=== PATIENT | male | born 1995 | race Caucasian/White ===

== ENCOUNTER 2016-06-06 18:09 | Inpatient (IN) | payer OTHER ==
[~2016-06-06] VITALS: Ht 188 cm; Wt 80.7 kg
[2016-06-07] MEDS ORDERED: ACETAMINOPHEN 325 MG TABLET PO PRN (00:15)
[2016-06-07] MEDS ORDERED: ONDANSETRON ODT 4 MG TAB.RAPDIS SL PRN (00:15)
[2016-06-07] MEDS ORDERED: MAG HYDROX/AL HYDROX/SIMETH 30 ML LIQUID UDC PO PRN (00:15)
[2016-06-07] MEDS ORDERED: DIAZEPAM 10 MG TABLET PO PRN ×2 (00:15)
[2016-06-07] MEDS ORDERED: CLONIDINE HCL 0.1 MG TABLET PO PRN (00:15)
[2016-06-07] MEDS ORDERED: IBUPROFEN 400 MG TABLET PO PRN (00:15)
[2016-06-07] MEDS ORDERED: DICYCLOMINE HCL 20 MG TABLET PO PRN (00:15)
[2016-06-07] MEDS ORDERED: MAGNESIUM HYDROXIDE 30 ML LIQUID UDC PO PRN (00:15)
[2016-06-07] MEDS ORDERED: LOPERAMIDE HCL 2 MG CAPSULE PO PRN ×2 (00:15)
[2016-06-07] MEDS ORDERED: LORAZEPAM 2 MG/1 ML VIAL IM PRN (00:15)
[2016-06-07] MEDS ORDERED: DIAZEPAM 5 MG TABLET PO PRN (00:15)
[2016-06-07] MEDS ORDERED: BUPRENORPHINE HCL 2 MG TAB.SUBL SL PRN ×2 (00:30→10:00)
--- NOTE | 2016-06-07 01:00 | NUR ---
ADMISSION NOTE Pt arrived ambulatory to the [facility] 3rd floor (accompanied by [facility] staff) at approximately 0004. Pt is a 20 y/o male ( born on 1995) being admitted for Xanax, Ativan, and Heroin dependence and use. Pt has NKA but reported a PMH of HTN, anxiety, bladder surgery x 2, appendectomy, and seizure r/t benzodiazepine w/d. Pt is unmarried and without children. Pt reported " I graduated high school, but I'm not working right now." Pt is currently rooming with friends and sharing hotel rooms. Pt denies having any financial hardship or trouble accessing resources and necessities. Pt reported not having a primary care physician or psych doctor at this time. Pt did not arrive with any medications or report taking any. Pt was then asked about his substance use history including; what substance (s) he uses, the frequency, dose, route, last use, and last amount used." Pt responded " I've been using Heroin, Xanax, and Ativan for 6 years. I use needles for Heroin and the pills I just swallow. I take up to 3 grams of Heroin a day. I take 8-12 mg of Xanax a day, and when I can't get Xanax I take about 8 mg of Ativan. The last time I had Xanax was two days ago ( est. 06/04/16) and I took 2 and a half pills, so about 5 mg. It's been about a week since I've had Ativan (est. 05/31/16). The last time I shot up Heroin was around 3:30 AM (06/06/16) and it was 0.5 gram." Pt was then asked about his treatment history. Pt stated " I was here([facility]) like 6 months ago. 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 I can't really remember the names and I was never at any of them for a long time." Upon assessment pt is a/o x 4 with no changes in LOC. Pt's skin is dry and intact, however pt has acne on his face, chest and the back of his shoulders. No discharge, redness, swelling, or bleeding noted. Pt's breathing is even and unlabored. No SOB noted or reported. Lung auscultations clear in all lobes. PERRLA noted. Hand instant potato processor strong bilaterally. Skin turgor indicates adequate hydration. Bowel sounds hypoactive in all four quadrants. Abdomen soft and non distended. Pt stated " I haven't gone to the bathroom in a few days, but I don't want to take anything because once I start withdrawing I know I'll be able to go to the bathroom." Flatulence is present. Pt encouraged to notify staff of any changes in condition or of any concerns and also to increase fluid intake. Pt verbalized an understanding. Vital Signs: BP: 135/79 P:75 T: 97.6 R: 20 Pain: 0/10 ( Pt reported his legs were starting to ache, but declined any PRNS stating " Its really not that bad. I'm going to lay down and I'm sure It'll be better in the morning; if not I'll take something then.") Oxygen Saturation: 100% COW: 7 CIWA: 2. All safety measures in place; side rails up x 2, bed locked and in low position, and call light within reach. UA to be collected and sent to the lab for testing. Will continue to monitor.
--- NOTE | 2016-06-07 04:00 | NUR ---
COW, CIWA, AND VITALS REFUSED Pt refused to be assessed and have vitals taken at this time. Pt stated " I'm sleeping right now. I'll do it in the morning." Pt was encouraged x 3 with risks and benefits explained but the pt still declined. All safety measures in place. Will continue to monitor. Addendum: 06/07/16 at 0522 by ANOOP RAMIREZ LVN Amended: Links added.
--- NOTE | 2016-06-07 07:09 | NUR ---
END OF SHIFT NOTE Pt is a 20 y/o male admitted for Xanax, Ativan and Heroin dependence and use. Pt has NKA but reported a PMH of HTN, anxiety, bladder surgery x 2, appendectomy, and seizure r/t benzodiazepine w/d. Pt is not placed on a taper at this time, but has PRN medications available for any discomfort. Pt didn't receive any PRNS during the shift. Pt still has not provided a UA. Last COW: 7 and CIWA: 2 at the time of admission. Pt refused to have blood drawn for labs at 0100. Pt slept for a total of 5 hours on rap artist. All safety measures in place; side rails up x 2, bed locked and in low position, and call light within reach. Endorsed to the oncoming nurse.
[2016-06-07 08:00] VITALS: BP 120/60
[2016-06-07] MEDS: MULTIVITAMINS,THERAPEUTIC TABLET PO SCH (09:00)
--- NOTE | 2016-06-07 10:40 | NUR ---
START OF SHIFT: RECEIVED PT WITH EYES CLOSED . EASILY AROUSED AND STATING HE WANTS TO BE LEFT ALONE. 0900 MULTIVITAMIN HELD. 0800 COWS AND CIWA DEFERRED. SAFETY MEASURES IN PLACE. CALL JOLLY IN REACH. WILL CONTINUE TO MONITOR
[2016-06-07 12:00] VITALS: BP 138/73
[2016-06-07] MEDS: DIAZEPAM 10 MG TABLET PO SCH ×3 (13:29→21:51)
[2016-06-07] MEDS: BUPRENORPHINE HCL 2 MG TAB.SUBL SL SCH ×3 (13:30→21:52)
[2016-06-07 15:13] LABS: *AMPHETAMINE, URINE NEGATIVE (NEGATIVE); *BARBITURATE, URINE POSITIVE (NEGATIVE); *CANNABINOID, URINE NEGATIVE (NEGATIVE); *COCCAINE, URINE NEGATIVE (NEGATIVE); *OPIATE, URINE POSITIVE (NEGATIVE); *PHENCYCLIDINE SCREEN,URINE NEGATIVE (NEGATIVE)
[2016-06-07 16:00] VITALS: BP 128/74
--- NOTE | 2016-06-07 18:26 | NUR ---
END OF SHIFT: PT SLEPT IN THIS AM AND AWOKE C/O LEG CRAMPS,RESTLESSNESS,STOMACH CRAMPS AND CHILLS. COWS 14. INDUCTION DOSE OF SUBUTEX 4MG SL GIVEN AND EFFECTIVE. ORDERED 4 D VALIUM 4D SUBUTEX TAPER. PT INTERACTED WITH PEERS TODAY. PT IS COMPLIANT WITH INCREASED FLUIDS. LAST CIWA 4. WILL CONTINUE TO OFFER SUPPORT AND PASS SHIFT REPORT TO ONCOMING NIGHT NURSE.
--- NOTE | 2016-06-07 19:35 | NUR ---
START OF SHIFT NOTE Pt is a 20 y/o male admitted for Xanax, Ativan and Heroin dependence and use. Pt has NKA but reported a PMH of HTN, anxiety, bladder surgery x 2, appendectomy, and seizure r/t benzodiazepine w/d. Pt was placed on a 4 day Valium taper and 4 day Subutex taper (day 1) and is tolerating medication well, with no s/e or a/r reported. Pt didn't receive any PRNS during the day shift. Last COW: 4 and CIWA: 1 (1600). Pt is calm, cooperative, and compliant with plan of care. Pt denies any pain/discomfort at this time. Pt was encouraged to notify staff of any changes in condition or of any concerns. Pt verbalized an understanding. All safety measures in place; side rails up x 2, bed locked and in low position, and call light within reach. Will continue to monitor.
[2016-06-07 20:00] VITALS: BP 127/89
[2016-06-07] MEDS: GABAPENTIN 300 MG CAPSULE PO SCH (21:51)
[2016-06-08] VITALS: BP 128/88
--- NOTE | 2016-06-08 04:00 | NUR ---
CIWA, COW, AND VITALS REFUSED Pt refused to be assessed and have vitals taken at this time. Pt was encouraged x 3 with risks and benefits explained, but the pt still declined. All safety measures in place. Will continue to monitor. Addendum: 06/08/16 at 0537 by ANOOP RAMIREZ LVN Amended: Links added.
--- NOTE | 2016-06-08 07:25 | NUR ---
END OF SHIFT NOTE Pt is a 20 y/o male admitted for Xanax, Ativan and Heroin dependence and use. Pt has NKA but reported a PMH of HTN, anxiety, bladder surgery x 2, appendectomy, and seizure r/t benzodiazepine w/d. Pt is on a 4 day Valium and 4 day Subutex taper (day 2) and is tolerating medication well with no s/e or a/r reported or noted. Pt didn't receive any PRNS during the shift.Last COW: 3 and CIWA: 3(0000). Pt slept for a total of 5 hours. All safety measures in place; side rails up x 2, bed locked and in low position, and call light within reach. Endorsed to the oncoming nurse.
--- NOTE | 2016-06-08 07:28 | NUR ---
Start Of Shift Pt is a 20 year old male admitted on 06/06/16 for Xanax, Ativan and Heroin dependence/withdrawal. Pt is full code regular diet on fall and seizure precautions denies any food or drug allergies. Reported PMH of HTN, anxiety, bladder surgery x 2, appendectomy, and seizure r/t benzodiazepine w/d. Pt is placed on a 4 day Valium and a 4 day Subutex taper currently on day 2 tolerating well. Pt's last CIWA was a 3 and COWS was a 3 taken at 0000. Pt didn't receive any PRN's during the night clerk. Pt slept a total of 5 hours last night. All safety measures in place; side rails up x 2, bed locked and in low position, and call light within reach, will continue to monitor and provide care.
[2016-06-08 08:00] VITALS: BP 107/66
[2016-06-08] MEDS ORDERED: TUBERCULIN,PURIF.PROT.DERIV. 5 TU/0.1 ML TEST ID ONE (09:00)
[2016-06-08] MEDS ORDERED: BUPRENORPHINE HCL 2 MG TAB.SUBL SL SCH (09:00)
[2016-06-08] MEDS: MULTIVITAMINS,THERAPEUTIC TABLET PO SCH (09:31)
[2016-06-08] MEDS: DIAZEPAM 5 MG TABLET PO SCH ×4 (09:31→21:38)
[2016-06-08] MEDS: GABAPENTIN 300 MG CAPSULE PO SCH ×3 (09:31→21:38)
[2016-06-08 12:00] VITALS: BP 115/69
[2016-06-08] MEDS: BUPRENORPHINE HCL 2 MG TAB.SUBL SL SCH ×2 (15:36→21:00)
[2016-06-08 16:00] VITALS: BP 109/64
--- NOTE | 2016-06-08 19:12 | NUR ---
End Of Shift Pt is a 20 year old male admitted on 06/06/16 for Xanax, Ativan and Heroin dependence/withdrawal. Pt is full code regular diet on fall and seizure precautions denies any food or drug allergies. Reported PMH of HTN, anxiety, bladder surgery x 2, appendectomy, and seizure r/t benzodiazepine w/d. Pt is placed on a 4 day Valium and a 4 day Subutex taper currently on day 2 tolerating well. Pts last CIWA was a 3 and COWS was a 3 taken at 1600. Pt didn't request nor receive any PRNS during my shift. Pt participated in some activities and groups. Pt received a PPD on his left arm. Pt stated that the medications are working well at controlling the withdrawal symptoms, evidenced by low assessment scores during the day ranging from 5-3. Pt ate all of his meals. Pt was encouraged to participate in groups and activities.Pt remains compliant with the treatment plan. Pts vital signs within normal limits, A/Ox4, denies chest pain. Respirations even unlabored, lungs clear upon auscultation abdomen soft and non- distended. Pt denies nausea, vomiting and diarrhea. Pt total fluid intake was 2150ml with 3 voids and no stool. Safety measures in place, call light within reach. All pertinent information discussed with shift superintendent, endorsement given to shift superintendent nurse.
--- NOTE | 2016-06-08 19:45 | NUR ---
START OF SHIFT NOTE Pt is a 20 y/o male admitted for Xanax, Ativan and Heroin dependence and use. Pt has NKA but reported a PMH of HTN, anxiety, bladder surgery x 2, appendectomy, and seizure r/t benzodiazepine w/d. Pt was placed on a 4 day Valium taper and 4 day Subutex taper (day 2) and is tolerating medication well, with no s/e or a/r reported. Pt didn't receive any PRNS during the day shift. Last COW: 3 and CIWA: 3 (1600). Pt is calm, cooperative, and compliant with plan of care. Pt denies any pain/discomfort at this time. Pt was encouraged to notify staff of any changes in condition or of any concerns. Pt verbalized an understanding. All safety measures in place; side rails up x 2, bed locked and in low position, and call light within reach. Will continue to monitor.
[2016-06-08 20:00] VITALS: BP 106/89
[2016-06-09] VITALS: BP 143/80
--- NOTE | 2016-06-09 04:00 | NUR ---
COW, CIWA, AND VITALS REFUSED Pt refused to be assessed and have vitals taken at this time. Pt was encouraged x 3 with risks and benefits explained, but the pt still declined. All safety measures in place. Will continue to monitor. Addendum: 06/09/16 at 0641 by ANOOP RAMIREZ LVN Amended: Links added.
--- NOTE | 2016-06-09 07:30 | NUR ---
START OF SHIFT NOTE Received report from night nurse, 20 year old male admitted for BENZO/Heroin dependence. NKA Full code, Regular diet. Pt reported a PMH of HTN, anxiety, bladder surgery x 2, appendectomy, and seizure r/t benzodiazepine w/d. Pt was placed on a 4 day Valium taper and 4 day Subutex taper and is tolerating medication well, with no s/e or a/r reported. Pt did not receive any PRN's Pt also refused his Scheduled Subutex. Currently pt is sleeping in his room, responsive to verbal and tactile stimuli, no s/s of distress noted. Safety measures in place, call light within reach. Will continue to monitor.
--- NOTE | 2016-06-09 07:32 | NUR ---
END OF SHIFT NOTE Pt is a 20 y/o male admitted for Xanax, Ativan and Heroin dependence and use. Pt has NKA but reported a PMH of HTN, anxiety, bladder surgery x 2, appendectomy, and seizure r/t benzodiazepine w/d. Pt is on a 4 day Valium and 4 day Subutex taper (day 3) and is tolerating medication well with no s/e or a/r reported or noted. Pt didn't receive any PRNS during the shift. Pt refused his 2100 dose of Subutex. Pt stated " I haven't gone to the bathroom, and if I keep taking the Subutex I'm not going to go." Pt was offered something to help aide in constipation several times, but the pt declined. Pt's abdomen is soft and barely distended. Bowel sounds present in all four quadrants. Pt was encouraged to increase fluids and ambulation to help promote elimination. Pt verbalized an understanding. Last COW: 2 and CIWA: 0(0000). Pt slept for a total of 5 hours. All safety measures in place; side rails up x 2, bed locked and in low position, and call light within reach. Endorsed to the oncoming nurse.
[2016-06-09 08:00] VITALS: BP 108/70
[2016-06-09] MEDS: BUPRENORPHINE HCL 2 MG TAB.SUBL SL SCH ×3 (09:00→21:00)
[2016-06-09] MEDS: GABAPENTIN 300 MG CAPSULE PO SCH ×3 (09:54→20:12)
[2016-06-09] MEDS: DIAZEPAM 5 MG TABLET PO SCH ×3 (09:54→20:12)
[2016-06-09] MEDS: MULTIVITAMINS,THERAPEUTIC TABLET PO SCH (09:54)
--- NOTE | 2016-06-09 09:56 | NUR ---
REFUSED MED Pt refused his scheduled Subutex stated that I am feeling fine ELISEO noted 1. aware. Will cont to monitor.
[2016-06-09 12:00] VITALS: BP 128/62
[2016-06-09 16:00] VITALS: BP 142/74
--- NOTE | 2016-06-09 19:35 | NUR ---
End of Shift 20 year old male admitted for BENZO/Heroin dependence. NKA Full code, Regular diet. Pt reported a PMH of HTN, anxiety, bladder surgery x 2, appendectomy, and seizure r/t benzodiazepine w/d. Pt was placed on a 4 day Valium taper and 4 day Subutex taper and is tolerating medication well, with no s/e or a/r reported. PT is responsive to verbal and tactile stimuli, no s/s of distress noted. Safety measures in place, call light within reach. Endorsed to nurse tech nurse.
[2016-06-09 20:00] VITALS: BP 143/78
--- NOTE | 2016-06-09 20:00 | NUR ---
1999 Patient received awake, alert and just returning to his room # [id number] from [facility]. Gait is steady. Patient responds to nurse's greeting and introduction with, " Hi, are you my nurse tonight?" Patient's color is pink and his skin is warm, dry and intact. Patient is oriented to person, place, day, date, time and his personal situation. Patient's lung sounds are clear bilaterally and active bowel sounds are noted X 4 abdominal Quads, per auscultation. Patient states that he has been going to [employer] consistently, and eating and taking fluids ad evelyn with no real gastric issues noted. Vital signs are: 98.2-89-18 143/78, O2 sat 97%, COWS 2, CIWA 2. Patient denies any pain or other discomforts at this time and no requests voiced. Patient was admitted on 06/06/16 for: Heroin, Xanax and Ativan withdrawal and he is currently on a 4-Day Subutex medication taper and a 4-day Valium medication taper, which he has apparently been tolerating well so far. Patient is cooperative and verbally appropriate, though somewhat guarded and anxious when interacting with nurse. Bed is locked and in lowest position, bed rails are up X 2 and call light within patient's easy reach.
--- NOTE | 2016-06-10 | NUR ---
Patient refused V/S, COWS, CIWA to be done at this time.
[2016-06-10] MEDS: diphenhydrAMINE 50 MG CAPSULE PO PRN (00:24)
--- NOTE | 2016-06-10 00:24 | NUR ---
PRN MEDICATION: Prn Bendryl 50 mg p.o. given per request for sleep medication.
--- NOTE | 2016-06-10 00:27 | NUR ---
PRN MEDICATION: Prn Motrin 400 mg p.o. given per request for patient's c/o " My kidneys are killing me. I told the doctor about that already". Patient points to his right flank area. 6-7/10 pain scale.
[2016-06-10] MEDS: METHOCARBAMOL 750 MG TABLET PO PRN (00:28)
--- NOTE | 2016-06-10 00:28 | NUR ---
PRN MEDICATION: Prn Robaxin 750 mg per patient's c/o lower body and back muscle aches and pains, 6-7/10 pain scale.
[2016-06-10] MEDS: HYDROXYZINE PAMOATE 25 MG CAPSULE PO PRN (00:29)
--- NOTE | 2016-06-10 00:29 | NUR ---
PRN MEDICATION: Prn Vistaril 50 mg p.o. given per patient's c/o anxiety.
--- NOTE | 2016-06-10 01:29 | NUR ---
REASSESSMENT PRN MEDICATIONS: Patient is resting comfortably with eyes closed and deep, regular respirations noted at 14.
--- NOTE | 2016-06-10 06:30 | NUR ---
0630 Patient slept a total of 5 hours and he had 1,460 ml p.o. intake. Total voids X 3 and he had no stools. Prn medications given noted separately per floor protocol. V/SS afebrile, COWS 2, CIWA 2. Patient is presently sleeping comfortably with eyes closed and respirations even, unlabored at 14. Patient is in stable condition at this time.
--- NOTE | 2016-06-10 07:00 | NUR ---
Start of Shift Notes: Received patient in his room. Alert and oriented x 4. Able to make needs known. Respirations even and unlabored. No SOB noted. Skin warm and dry to touch. Abdomen soft and non-distended with (+) BS in all 4 quadrants. No complains of N/V/D or constipation noted. Bladder non-distended. No complains of dysuria noted. Ambulatory ad evelyn with steady gait. Patient is a 20 year old male admitted for opiate and BZO dependence who was placed on a 4-day Valium and 4-day Subutex taper as ordered. No adverse reactions noted. NKA. FULL CODE. Regular diet. On fall and seizure precautions. Educated patient on his current plan of care for the day and his medication regimen. Encouraged oral fluid intake and encouraged group participation to learn new skills to prevent relapse. Will continue to monitor closely.
[2016-06-10 08:00] VITALS: BP 91/67
[2016-06-10] MEDS: MULTIVITAMINS,THERAPEUTIC TABLET PO SCH (09:00)
[2016-06-10] MEDS: GABAPENTIN 300 MG CAPSULE PO SCH ×3 (09:00→21:12)
[2016-06-10] MEDS: DIAZEPAM 5 MG TABLET PO SCH ×2 (09:00→21:13)
[2016-06-10] MEDS ORDERED: BUPRENORPHINE HCL 2 MG TAB.SUBL SL SCH (09:00)
--- NOTE | 2016-06-10 09:54 | NUR ---
0900 Meds not administered: Patient refused all due meds at 0900 despite explanation of risk and benefits. Patient still refused. Offered 3x, still refused. Will continue to monitor and notify MD.
[2016-06-10] MEDS ORDERED: MIRALAX 17 GM POWD.PACK PO ONE (11:30)
[2016-06-10 12:00] VITALS: BP 111/58
--- NOTE | 2016-06-10 12:24 | NUR ---
Miralax 17 gm not administered: Patient noted with x 1 order for Miralax. Offered med to the patient but refused. Patient states "i just went." Education provided. Oral fluids encouraged.
[2016-06-10 16:00] VITALS: BP 132/83
--- NOTE | 2016-06-10 18:44 | NUR ---
START OF SHIFT NOTE Patient endorsed by day shift nurse. SBAR report received. Patient is a 20 years old male admitted to [facility] on 06/06/2016 for Benzo/Opiate/ Ativan Dependence, placed on 4 Day Valium and 4 Day Subutex Taper started on 06/07/2016. Patient tolerating taper well. NKA, Regular diet, Full Code, Seizures and Fall Precautions. Patient reported History of Seizure r/t Benzo withdrawal. Substance Use History: Xanax PO "8-12 mg daily during 6 years". Last dose of "5 mg on 06/04/2016". Heroin via IV "3 grams daily during 1 month". Last dose of "0.5 gram on 06/06/2016". Ativan PO "8 mg daily intermittently during 1 month". Last dose was on 05/31/2016. Patient can't reminder amount. He said: "Unknown amount". PMH: HTN; Anxiety; Seizure r/t Benzo withdrawal. Past Surgery History: Bladder Surgery x 2; Appendectomy. CIWA 8; COWS 8: patient c/o increase anxiety, nervousness, agitation bones and muscles aching, tremors, sweating. VS: T: 98.3; HR: 95; RR:20; Room Air O2 Sat: 98%. Breathing is unlabored and even. Lungs Sound are clear bilaterally. Patient denied SOB and chest pain. Heart rate is regular. BS is active in all x4 quadrants. Last BM's today at 18:30. Patient denied N/V, and diarrhea. Skin is warm and moisture by touch. Patient has acne on the face, chest, back, on the Right and Left shoulders. Patient remains compliant with medication and diet regime. Patient was encouraged to attend activity groups. Safety measures on place by hospital policy: Call light within reach; Bed in lowest position and locked; side rails up x2. Will continue to monitor.
--- NOTE | 2016-06-10 18:44 | NUR ---
End of Shift Notes: Patient is a 20 year old male admitted on 06/06/2016 for opiate and BZO dependence that was placed on a 4-day Valium and 4-day Subutex taper as ordered. No adverse reactions noted. Patient has past medical hx of HTN, anxiety, bladder surgery x 2, appendectomy, seizure r/t benzo withdrawal. NKA. FULL CODE. Regular diet. On fall and seizure precautions. VS monitored q 4 hours. No significant abnormalites noted. Prior to admission, patient was using 3 grams of Heroin IV, 8 to 12 mg of Xanax daily x 1 month. Initial COWS 0/CIWA 0. Last COWS 3/CIWA 5. Refused AM meds, Miralax and Gabapentin. Patient stayed in his room during the day. Did not participate in group. Isolates self. Needs encouragement to attend activities and to comply with therapeutic plan of care. Kept patient safe and visual checks q 1 hour. All needs met and attended. Will continue to monitor closely.
[2016-06-10 20:00] VITALS: BP 133/73
[2016-06-10] MEDS: SENNOSIDES 1 TABLET PO SCH (21:12)
[2016-06-10] MEDS: DOCUSATE SODIUM 100 MG CAPSULE PO SCH (21:13)
[2016-06-11] VITALS: BP 152/53
--- NOTE | 2016-06-11 04:00 | NUR ---
VS, CIWA, COWS REFUSED Patient refused VS, CIWA, and COWS at this time. Safety measures on place by hospital policy: Call light within reach; Bed in lowest position and locked; side rails up x2. Will continue to monitor.
--- NOTE | 2016-06-11 06:59 | NUR ---
END OF SHIFT NOTE Patient endorsed to day shift nurse. Report given. Patient is a 20 years old male admitted to [facility] on 06/06/2016 for Benzo/Opiate/ Ativan Dependence, placed on 4 Day Valium and 4 Day Subutex Taper started on 06/07/2016. Patient tolerating taper well. NKA, Regular diet, Full Code, Seizures and Fall Precautions. Patient reported History of Seizure r/t Benzo withdrawal. Substance Use History: Xanax PO "8-12 mg daily during 6 years". Last dose of "5 mg on 06/04/2016". Heroin via IV "3 grams daily during 1 month". Last dose of "0.5 gram on 06/06/2016". Ativan PO "8 mg daily intermittently during 1 month". Last dose was on 05/31/2016. Patient can't reminder amount. He said: "Unknown amount". PMH: HTN; Anxiety; Seizure r/t Benzo withdrawal. Past Surgery History: Bladder Surgery x 2; Appendectomy. CIWA 8; COWS 8: patient presents with anxiety, nervousness, agitation bones and muscles aching, tremors, sweating. Patient endorsed to outgoing day shift nurse in stable condition. Report given. VS WNL. Patient has acne on the face, chest, back, on the Right and Left shoulders. Patient remains compliant with medication and diet regime. No PRN Medications administrated last night. Patient slept 4 hours 30 minutes; Intake 796 ML; Output X 1. Patient was encouraged to attend activity groups. Safety measures on place by hospital policy: Call light within reach; Bed in lowest position and locked; side rails up x2. Will continue to monitor.
--- NOTE | 2016-06-11 07:30 | NUR ---
START OF SHIFT NOTE: Received report from shift nurse manager nurse. Patient is a 20 year old male admitted on 06/06/2016 for Benzo/Opiate/ Ativan Dependence. Pt completed a 4 Day Valium and 4 Day Subutex taper. Pt is alert and oriented X4. Color good, skin warm and dry. Respirations even and unlabored. Safety precautions observed. Call light within reach. Will continue to monitor.
[2016-06-11 08:00] VITALS: BP 114/70
[2016-06-11] MEDS: DOCUSATE SODIUM 100 MG CAPSULE PO SCH ×2 (09:00→20:42)
[2016-06-11] MEDS: MULTIVITAMINS,THERAPEUTIC TABLET PO SCH (09:00)
[2016-06-11] MEDS: GABAPENTIN 300 MG CAPSULE PO SCH ×3 (09:00→20:39)
--- NOTE | 2016-06-11 09:00 | NUR ---
VSS Pt sleeping and when awakened pt refused medications.
--- NOTE | 2016-06-11 12:22 | NUR ---
Pt still sleeping
--- NOTE | 2016-06-11 13:00 | NUR ---
VSS Pt awake and attending group.
[2016-06-11 14:08] VITALS: BP 112/60
--- NOTE | 2016-06-11 17:17 | NUR ---
VSS COWS 2 CIWA 2 Pt to be discharged in AM
[2016-06-11] MEDS ORDERED: Gabapentin PO (17:18)
[2016-06-11] MEDS ORDERED: METH-33 PO (17:18)
[2016-06-11] MEDS ORDERED: HYDR-3895 PO (17:18)
[2016-06-11 17:26] VITALS: BP 135/85
--- NOTE | 2016-06-11 18:44 | NUR ---
END OF SHIFT NOTE: Report given to assistant shift supervisor nurse. Patient is a 20 year old male admitted on 06/06/2016 for Benzo/Opiate/ Ativan Dependence. Pt completed a 4 Day Valium and 4 Day Subutex taper. Pt to be discharged in AM. Pt is alert and oriented X4. Color good, skin warm and dry. Respirations even and unlabored. Vital signs have remained stable throughout shift. Last CIWA 2 COWS 2 @ 1700. Safety precautions observed. Call light within reach.
--- NOTE | 2016-06-11 18:44 | NUR ---
START OF SHIFT NOTE Patient is a 20 years old male admitted to [facility] on 06/06/2016 for Benzo/Opiate, Ativan and Barbiturates(?) Dependence, placed on ordered 4 day Valium and 4 day Subutex taper. NKA; Regular Diet; Fall and Seizures Precautions. Substance Abuse History: Heroin (IV): " 3 grams daily during 1 month. Last dose: 0.5 gram - on 06/06/2016". Xanax (PO): "since 2010". " 8-12 mg daily during 1 month". Last dose of 5 mg taken on 05/31/2016". Ativan(PO) " since April,, 8mg daily". Last dose taken on 05/31/2016: amount "unknown". Patient can't reminder exactly for Barbiturates(?). Patient reported that he living sober for "1 day". PMH: HTN; Anxiety; Seizure r/t Benzo withdrawal. Past Surgery History: Appendectomy; Bladder surgery x 2. Upon assessment patient alert and oriented x 4. COWS 6; CIWA 7: patient c/o increase anxiety; nervousness, sweating, mild headache, bone and joint aching. VS: T: 98.4; BP: 143/58; HR: 104; RR: 16; Room Air O2 Sat: 100%. Generalized Pain level 5/10. Breathing is unlabored and even; Lungs are clear bilaterally; Patient denied SOB and heart pain. Stomach is soft and non-distended. BS are active in all x4 quadrants. Skin is intact and occasionally moist . Patient attended activity groups. Patient remains compliant with medications and diet regime. Patient's educated for safety issues.. Patient verbalized understanding by return his knowledge back. Patient will discharging tomorrow, in the morning. Will providing ordered UDS test . Safety measures in the place by hospital policy: Call light within reach; Bed in the lowest position and locked; Bed rails up x2. Will continue to monitor.
[2016-06-11 20:00] VITALS: BP 143/58
[2016-06-11] MEDS: SENNOSIDES 1 TABLET PO SCH (20:42)
[2016-06-11] MEDS: METHOCARBAMOL 750 MG TABLET PO PRN (21:19)
[2016-06-11] MEDS: HYDROXYZINE PAMOATE 25 MG CAPSULE PO PRN (21:22)
--- NOTE | 2016-06-11 21:23 | NUR ---
Patient appeared very agitated, V/S-WNLs, breathing even, unlabored. Patient requested Robaxin, muscle relaxant, Vistaril for anxiety. Medications were given as ordered. Tolerated well. Will continue to provide safe and supportive environment.
--- NOTE | 2016-06-11 22:00 | NUR ---
Patient is less agitated, visited group activities, V/S-WNLs, will continue to monitor.
[2016-06-11] MEDS: diphenhydrAMINE 50 MG CAPSULE PO PRN (22:37)
--- NOTE | 2016-06-11 22:37 | NUR ---
PRN BENADRYL PO ADMINISTRATION Patient c/o insomnia and asked sleep aid. Patient 's assessed. PRN Benadryl 's discussed with patient. Patient 's educated foe actions, adverse reactions of the Benadryl. Patient return his knowledge back by verbalizing understanding. Safety measures in the place by hospital policy: Call light within reach; Bed in the lowest position and locked; Bed rails up x2. Will continue to monitor.
--- NOTE | 2016-06-11 23:37 | NUR ---
REASSESSMENT Patient lying quietly in his bed with eyes closed. Breathing is even and unlabored. RR: 16. PRN Benadryl PO was effective.. Safety measures on place by hospital policy: Call light within reach; Bed in lowest position and locked; side rails up x2. Will continue to monitor.
[2016-06-12] VITALS: BP 133/66
[2016-06-12 01:01] LABS: *AMPHETAMINE, URINE NEGATIVE (NEGATIVE); *BARBITURATE, URINE NEGATIVE (NEGATIVE); *CANNABINOID, URINE NEGATIVE (NEGATIVE); *COCCAINE, URINE NEGATIVE (NEGATIVE); *OPIATE, URINE NEGATIVE (NEGATIVE); *PHENCYCLIDINE SCREEN,URINE NEGATIVE (NEGATIVE)
[2016-06-12 04:00] VITALS: BP 126/69
--- NOTE | 2016-06-12 06:58 | NUR ---
END OF SHIFT NOTE Patient is a 20 years old male admitted to [facility] on 06/06/2016 for Benzo/Opiate/ Ativan Dependence, finished 4 day Valium and 4 day Subutex taper. NKA; Regular Diet; Fall and Seizures Precautions. Substance Abuse History: Heroin (IV): " 3 grams daily during 1 month. Last dose: 0.5 gram - on 06/06/2016". Xanax (PO): "since 2010". " 8-12 mg daily during 1 month". Last dose of 5 mg taken on 05/31/2016". Ativan(PO) " since April,, 8mg daily". Last dose taken on 05/31/2016: amount "unknown". Patient can't reminder exactly for Barbiturates(?). Patient reported that he living sober for "1 day". PMH: HTN; Anxiety; Seizure r/t Benzo withdrawal. Past Surgery History: Appendectomy; Bladder surgery x 2. 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 COWS decreased from 6 to2; CIWA decreased from 6 to 2. VS WNL. Patient attended activity groups. PRN Robaxin PO for muscle spasm; PRN Vistaril for anxiety; and PRN Benadryl for insomnia administrated and were effective. Patient remains compliant with medications and diet regime. Patient will discharging today, in the morning. UDS lab test results placed on the chart. Patient slept 4,75 hours; Intake 950 ml; output x2. Safety measures in the place by hospital policy: Call light within reach; Bed in the lowest position and locked; Bed rails up x2. Patient endorsed to day shift nurse in stable condition. Report given.
[2016-06-12 08:00] VITALS: BP 128/80
--- NOTE | 2016-06-12 08:05 | NUR ---
START OF SHIFT: RECEIVED PT A/O X 4. HE REPORTS FEELING BETTER AND STATES THE DETOX MEDS WERE EFFECTIVE. CIWA 1 COWS 1. HE REFUSED AM MEDS AND STATES " I DON'T NEED THEM". WILL CONTINUE DISCHARGE PLANNING FOR THIS AM. PT STATES HE IS MOTIVATED TOWARD RECOVERY. WILL CONTINUE TO MONITOR.
[2016-06-12] MEDS: MULTIVITAMINS,THERAPEUTIC TABLET PO SCH (09:00)
[2016-06-12] MEDS: GABAPENTIN 300 MG CAPSULE PO SCH (09:00)
[2016-06-12] MEDS: DOCUSATE SODIUM 100 MG CAPSULE PO SCH (09:00)
--- NOTE | 2016-06-12 09:53 | NUR ---
START OF SHIFT: PT IS A/O X 4. HE DENIES S/I AND H/I. HE REPORTS FEELING MILDLY ANXIOUS ABOUT DISCHARGING BUT IS MOTIVATED TOWARD RECOVERY. EDUCATED PT ON DISCHARGE INSTRUCTIONS AND MEDICATION. PT EXPRESSED VERBAL UNDERSTANDING OF EDUCATION. PT WAS ESCORTED BY [facility] TO [facility] WHERE HE WAS TRANSPORTED BY [employer] [facility] TO [facility]. Addendum: 06/12/16 at 0955 by LORI SAHU RN DISCHARGE NOT START OF SHIFT
== END 2016-06-12 09:48 | disposition other institution (70) | DRG 895 ==
LOC: SRC 23:37
PROVIDERS: ADMIT Internal Medicine; ATTEND Internal Medicine
PROC: HZ2ZZZZ Detoxification Services for Substance Abuse Treatment (ICD-10-PCS; principal; 2016-06-06)
PROC: HZ31ZZZ Individual Counseling for Substance Abuse Treatment, Behavioral (ICD-10-PCS; 2016-06-08)
PROC: HZ41ZZZ Group Counseling for Substance Abuse Treatment, Behavioral (ICD-10-PCS; 2016-06-09)
DX: F11.23 Opioid dependence with withdrawal (principal); F13.230 Sedative, hypnotic or anxiolytic dependence with withdrawal, uncomplicated; F10.10 Alcohol abuse, uncomplicated; Y90.9 Presence of alcohol in blood, level not specified; Z82.49 Family history of ischemic heart disease and other diseases of the circulatory system; F12.90 Cannabis use, unspecified, uncomplicated; F41.9 Anxiety disorder, unspecified; Z59.1 Inadequate housing; I10 Essential (primary) hypertension; K59.00 Constipation, unspecified; F15.10 Other stimulant abuse, uncomplicated; F17.210 Nicotine dependence, cigarettes, uncomplicated
CPT/HCPCS: 70030-TC; 80307; 80345; 80361; 86580; A4663; Q0163